=== PATIENT | male | born 1980 | race Caucasian/White ===

== ENCOUNTER 2021-07-14 16:58 | Emergency (ER) | payer OTHER ==
[2021-07-14 17:17] VITALS: RESP 20
--- NOTE | 2021-07-14 17:32 | XR ---
EXAMINATION TYPE: XR foot complete LT DATE OF EXAM: 07/14/2021 COMPARISON: NONE HISTORY: Foot pain toe pain TECHNIQUE: 3 views FINDINGS: There is nondisplaced fracture of the tuft of the distal phalanx of the big toe. There is a lso possible 3 mm chip fracture of the lateral base of the distal phalanx of the big toe. There is no dislocation. IMPRESSION: Fracture of the big toe as above. No significant displacement.
--- NOTE | 2021-07-14 18:33 | ED ---
Lower Extremity Injury HPI - General Chief Complaint: Extremity Injury, Lower Stated Complaint: Toe Injury Source: patient Mode of arrival: wheelchair Limitations: no limitations - History of Present Illness Initial Comments: 40-year-old male presents emergency room and after he dropped a package on his left great toe. 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 Patient has redness and bruising. Denies having any bleeding. Nail is intact. Has been able to ambulate however it painful. He took some Tylenol before coming into the emergency department. Numbness, tingling or weakness. No other alleviating, precipitating or modifying factors - Related Data Home Medications Medication Instructions Recorded Confirmed Doxycycline Hyclate [Vibramycin] 100 mg PO BID 12/02/15 12/02/15 Allergies Allergy/AdvReac Type Severity Reaction Status Date / Time No Known Allergies Allergy Verified 07/14/21 17:14 Review of Systems ROS Statement: Those systems with pertinent positive or pertinent negative responses have been documented in the HPI. ROS Other: All systems not noted in ROS Statement are negative. Past Medical History Past Medical History: No Reported History Additional Past Medical History / Comment(s): ACNE History of Any Multi-Drug Resistant Organisms: None Reported Past Surgical History: Ear Surgery Past Psychological History: No Psychological Hx Reported Smoking Status: Current every day smoker Past Alcohol Use History: Occasional Past Drug Use History: None Reported General Exam Limitations: no limitations Course Vital Signs 07/14/21 07/14/21 17:14 18:47 Temperature 98.2 F 98.3 F Pulse Rate 78 84 Respiratory 20 20 Rate Blood Pressure 137/87 146/83 O2 Sat by Pulse 100 100 Oximetry Medical Decision Making - Medical Decision Making Arrival patient is placed into room the [place] [id number] bed. A thorough history and physical exam is performed. Patient was sent for x-ray as an ACP order which demonstrates fracture of the big toe. Nondisplaced fracture of the tuft of the distal phalanx. Possible 3 mm chip fracture of the lateral base of the distal phalanx of the big toe. Patient is placed in a Daryl shoe. Instructed to ambulate as tolerated needs to follow-up with orthopedics. I did offer him medications for pain control however he refused. I also offered to write a prescription for crutches however patient refused. He is given a work note. Instructed to take Motrin Tylenol at home as needed for pain control. Should return parameters were discussed. Patient agreed to the plan and was discharged home in stable condition Disposition Clinical Impression: Fracture of left great toe Disposition: HOME SELF-CARE Condition: Stable Instructions (If sedation given, give patient instructions): Toe Fracture (ED) Additional Instructions: Please rest, ice and elevate the extremity. Follow up with orthopedic doctors within 1 week. Return to the emergency room for any new or worsening symptoms Is patient prescribed a controlled substance at d/c from ED?: No Referrals: Prashant Cavazos DO [Primary Care Provider] - 1-2 days Delmar Rojas DO [Doctor of Osteopathic Medicine] - 1-2 days Time of Disposition: 18:32
[2021-07-14 18:48] VITALS: BP 146/83; PULSE 84; TEMP 98.3
== END 2021-07-14 18:48 | disposition home or self-care (01) ==
LOC: EC 16:58
DX: S92.425A Nondisplaced fracture of distal phalanx of left great toe, initial encounter for closed fracture (principal); F17.200 Nicotine dependence, unspecified, uncomplicated; W20.8XXA Other cause of strike by thrown, projected or falling object, initial encounter
CPT/HCPCS: 99283

== ENCOUNTER → 2023-09-15 | Outpatient (CLI) | payer OTHER ==
--- NOTE | 2023-09-15 15:04 | XR ---
EXAMINATION TYPE: XR Hip Complete LT DATE OF EXAM: 09/15/2023 CLINICAL HISTORY: pain TECHNIQUE: AP and frogleg views of the left hip are obtained. COMPARISON: None. FINDINGS: There is no acute fracture/dislocation evident. The joint space appears within normal li mits. The overlying soft tissue appears unremarkable. IMPRESSION: 1. There is no acute fracture or dislocation.ICD 10 NO FRACTURE, INITIAL EVALUATION
== END | disposition home or self-care (01) ==
LOC: RADXRYALE 14:28
PROVIDERS: ATTEND Physician Assistant
DX: M25.552 Pain in left hip (principal)
CPT/HCPCS: 73502